=== PATIENT | male | born 1995 | race Caucasian/White ===

== ENCOUNTER 2018-10-04 12:47 | Emergency (ER) | payer OTHER, SELFPAY | END 2018-10-04 15:59 | disposition home or self-care (01) | LOC: ERS 12:47 | DX: K02.9 Dental caries, unspecified (principal); R59.0 Localized enlarged lymph nodes; F17.210 Nicotine dependence, cigarettes, uncomplicated; Z79.899 Other long term (current) drug therapy | CPT/HCPCS: 99406 ==